=== PATIENT | female | born 1980 ===

== ENCOUNTER 2023-06-28 11:37 | Day surgery (SDC) | payer OTHER, SELFPAY ==
--- NOTE | 2023-06-28 | PATH_ITS ---
[facility] Accession Number: [id number] No. of containers..01 Tissue . 01 Material submitted: . endometrium - ENDOMETRIAL CURETTINGS . 01 Diagnosis: Endometrium, Curettings: Infarcted chorionic villi, decidualized tissue, and blood clots, consistent with products of conception. [facility] 07/10/2023 1123 Local . 01 Electronically signed: . Olivia Escobar MD, Pathologist NPI- [id number] . 01 Gross description: . The specimen is received in formalin labeled with the patient's name, , and endometrial curettings, consists of multiple donald soft tissue fragments admixed with hemorrhage material aggregating to 3.7 x 3.4 x 1.6 cm. The specimen is submitted entirely in cassettes A1-A6. ([id number]) /MRV 07/05/2023 1012 Local . 01 Pathologist provided ICD-10: O02.1, O73.1, O02.9 . 01 CPT . 325777 Specimen Comment: A courtesy copy of this report has been sent to [phone] Performed at: [address] [facility] [address] [place] [address], [place], [place] [id number] MD Kris Buckley MD Phone: [phone]
[2023-06-28 11:54] VITALS: BP 118/68; PULSE 56; RESP 16; TEMP 36.8; O2SAT 100; BMI 23.0
[2023-06-28] MEDS: LACTATED RINGERS 1,000 ML 42 ML IV (12:11)
--- NOTE | 2023-06-28 12:43 | P.HPOB_ITS ---
History of Present Illness History of Present Illness Narrative: Delicia Cloud is a 42 year old female 2 para 1 who presents for a suction D&C. Patient had a termination procedure in March of 2023. She bled for 9 weeks afterwards. She went to the clinic at the [facility] to have an IUD placed. A urine test came up positive. They sent her for an ultrasound and there was a question of molar tissue versus retained products conception. She presents today for a suction D&C. Patient had an ultrasound on June 27, 2023 at the [facility]. Her uterus is measuring 10.0 x 6.0 x 5.5 cm. The endometrium is replaced by heterogeneous internal material with increased peripheral and some scattered minimal increased internal vascularity. Few scattered internal avascular cystic spaces. Difficult to define the endometrial/myometrial interface. Estimated maximal double wall thickness of the endometrial cavity is 4.5 cm. [facility] Surgical History (Updated 06/28/23 @ 12:44 by Alla Boyd MD) History of section, low transverse Social History household members: spouse Smoking Status: Never smoker Meds Home Medications and Allergies Allergies Allergy/AdvReac Type Severity Reaction Status Date / Time clavulanic acid Allergy Intermediate swelling Verified 06/28/23 11:52 [From Augmentin] amoxicillin [From Augmentin] Allergy Verified 06/28/23 11:52 Exam Vital Signs (past 8 hours): - 06/28/23 11:54 Temperature 98.2 F Pulse Rate 56 L Respiratory Rate 16 Blood Pressure 118/68 Pulse Oximetry 100 Oxygen Delivery Method Room Air Oxygen Delivery Method Room Air Narrative Exam Narrative: Generally: A well-developed, well-nourished female, no acute distress HEENT: No thyromegaly, no anterior cervical or supraclavicular lymphadenopathy. Lungs:Clear to auscultation bilaterally, no wheezes. Cardiovascular: Regular rate and rhythm, no murmurs, rubs, or gallops. Abdomen: Well-healed Pfannenstiel scars. No hepatosplenomegaly. No masses palpable. External genitalia: Normal Vagina: Normal Cervix: Normal Bimanual exam: 8 Week size anteverted uterus. Mobile. Extremities: No edema Assessment & Plan Assessment & Plan narrative: Assessment: 42-year-old 2 para 1011 with a thickened lining of the uterus with possible molar tissue Status post termination of in March of 2023 Still with positive test Plan: Suction D&C The risks, benefits, and alternatives to the procedure were explained to the patient. The risks including bleeding, infection and possible uterine perforation. She understands these risks and agrees to proceed. A full par Q was held and consent form was signed. Time Spent With Patient Time with patient: less than 30 minutes
--- NOTE | 2023-06-28 12:48 | PM.PREOP ---
Pre-operative Note Interval Note History & Physical reviewed/Exam performed by Physician: Yes Changes to H&P: No H&P completed within 30 days and has changed as indicated here:: 06/28/23
--- NOTE | 2023-06-28 13:12 | SUR.OPER ---
Lithotomy on padded OR bed, head on pillow, arms secured on padded arm boards at <90 degrees abduction. Legs secured in padded yellow fins stirrups.
[2023-06-28 13:32] VITALS: BP 106/60; PULSE 49; RESP 16; TEMP 36.2; O2SAT 98
--- NOTE | 2023-06-28 13:37 | PM.GYNOP.1 ---
Operative Date/Time/Diagnoses Date of procedure: 06/28/23 Time of procedure: 13:37 Pre-op diagnosis: Thickened endometrial lining Positive test Questionable molar on ultrasound Post-op diagnosis: same Procedure & Clinicians Procedure: Procedures Operation Date: 06/28/23 12:30 Actual Procedure Side Surgeon p Suction Dilation and Curettage Alla Boyd MD Indications: Patient is a 42-year-old 2 para 1 who underwent an elective in March of 2023. She presented to primary care office to have an IUD placed. She had a positive urine test. A subsequent ultrasound showed a very thickened endometrial lining with tissue consistent with a molar . Surgeon: Alla Boyd Anesthesia Type: General (LMA) Operative Notes Findings: 8 week size anteverted uweetrus size anteverted uterus [place] a possible septum Large amount of tissue Closure Type: not applicable Specimen(s): endometrial curettings Estimated blood loss (mL): 50 Blood products transfused: none and fresh frozen plasma Procedure in detail: Informed consent was obtained. The patient was taken to the operating room where she was placed in the dorsal supine position. After adequate LMA general anesthesia was achieved, she was placed in the dorsal lithotomy position, and prepped and draped in the usual sterile fashion. A time-out was performed. A bivalve speculum was placed into the vagina and the anterior lip of the cervix was grasped with a single-tooth tenaculum. The cervical os was sequentially dilated until the #6 curved plastic curette could pass easily into the endometrial cavity. Upon passing the plastic curette it appeared that there might be a septum in the midline of the uterus. Suction was performed on either side of the septum. Large amount of tissue was obtained. The plastic curette was removed from the uterus. Sharp curettage was performed yielding minimal amount of tissue. One more pass with suction revealed blood only. The instruments were removed from the uterus. A single-tooth tenaculum was removed from the anterior lip of the cervix. There was some bleeding noted from the tenaculum site. A ring forceps was placed for 1 minute for hemostasis. The bivalve speculum was removed from the vagina. Sponge, lap, and instrument counts were correct x2. The patient tolerated the procedure well, and was taken to PACU in stable condition. Complications: none Post-operative Condition: stable Disposition: PACU Plan for aftercare: Home after recovery
[2023-06-28 13:50] VITALS: BP 106/60; PULSE 50; RESP 16; TEMP 36.2; O2SAT 98
[2023-06-28 13:55] VITALS: BP 105/61; PULSE 48; RESP 16; TEMP 36.8; O2SAT 98
[2023-06-28 14:00] VITALS: BP 105/61; PULSE 50; RESP 16; TEMP 36.2; O2SAT 98
[2023-06-28] MEDS: ACETAMINOPHEN IV 1,000 MG/100 ML VIAL 400 MG IV (14:01)
[2023-06-28 14:30] VITALS: BP 108/74; PULSE 48; RESP 18; TEMP 36.3; O2SAT 97
== END 2023-06-28 14:40 | disposition home or self-care (01) ==
PROVIDERS: Referring Provider Obstetrics & Gynecology; Visit Provider Obstetrics & Gynecology
PROC: (CPT 58120; principal; 2023-06-28 12:30)
DX: O02.1 Missed abortion (principal)
CPT/HCPCS: 59820; 81025; J0131; J1100; J1885; J2405; J2704; J3010